=== PATIENT | female | born 1990 | race Caucasian/White ===

== ENCOUNTER 2019-10-22 23:27 | Emergency (ER) | payer MEDICAID ==
[~2019-10-22] VITALS: Ht 165.1 cm; Wt 88.0 kg
[2019-10-22 23:43] VITALS: Ht 165.1 cm; Wt 88.0 kg
[2019-10-23 02:51] VITALS: BP 122/74
== END 2019-10-23 02:45 | disposition home or self-care (01) ==
LOC: ED 23:27
DX: J20.9 Acute bronchitis, unspecified (principal)
CPT/HCPCS: 87804; J1885; J7613; J7644

== ENCOUNTER 2020-09-03 17:41 | Emergency (ER) | payer OTHER ==
[~2020-09-03] VITALS: Ht 165.1 cm; Wt 90.7 kg
[2020-09-03 17:43] VITALS: BP 135/73; Ht 165.1 cm; Wt 90.7 kg
== END 2020-09-03 18:47 | disposition home or self-care (01) ==
LOC: ED 17:41
DX: U07.1 COVID-19 (principal)
CPT/HCPCS: J1100